=== PATIENT | female | born 1990 | race Caucasian/White ===

== ENCOUNTER 2018-05-17 12:14 | Inpatient (IN) | payer OTHER ==
[~2018-05-17] VITALS: Ht 167.6 cm; Wt 148.0 kg
[2018-05-17 12:58] LABS: BASOPHILS # (AUTO) 0.05 x10^3/uL (0-0.1); BASOPHILS % (AUTO) 0 % (0-1); EOSINOPHILS # (AUTO) 0.25 x10^3/uL (0-0.4); EOSINOPHILS % (AUTO) 2 % (1-7); LYMPHOCYTES # (AUTO) 1.49 x10^3/uL (1-3.4); LYMPHOCYTES % (AUTO) 11 % (22-44); MD NO; MEAN CORPUSCULAR HEMOGLOBIN 31.1 pg (27.0-34.8); MEAN CORPUSCULAR HGB CONC 33.7 g/dL (32.4-35.8); MEAN CORPUSCULAR VOLUME 92.5 fL (80-100); MEAN PLATELET VOLUME 9.3 fL (7.4-10.4); MONOCYTES # (AUTO) 0.81 x10^3/uL (0.2-0.8); MONOCYTES % (AUTO) 6 % (2-9); NEUTROPHILS # (AUTO) 11.21 x10^3/uL (1.8-6.8); NEUTROPHILS % (AUTO) 81 % (42-75); PLATELET COUNT 216 x10^3/uL (130-400); RED BLOOD COUNT 3.95 x10^6/uL (3.82-5.3); RED CELL DISTRIBUTION WIDTH 15.4 % (9.6-15.2)
[2018-05-17 13:05] VITALS: BP 135/85
[2018-05-17 13:09] LABS: MICROSCOPIC INDICATED
[2018-05-17 13:14] LABS: ALBUMIN 2.4 g/dL (3.4-5.0); ANION GAP 10 mmol/L (5-15); CHLORIDE 107 mmol/L (98-107)
[2018-05-17 13:19] LABS: ALANINE AMINOTRANSFERASE 21 U/L (12-78); ALKALINE PHOSPHATASE 92 U/L (45-117); BILIRUBIN,TOTAL 0.3 mg/dL (0.2-1.0); CREATININE 0.54 mg/dL (0.55-1.02); TOTAL PROTEIN 6.3 g/dL (6.4-8.2)
[2018-05-17 13:21] LABS: BILIRUBIN, DIRECT < 0.1 mg/dL (0.1-0.2)
[2018-05-17] MEDS ORDERED: MAGNESIUM SULFATE PMX 4GM/100M 100 ML IVPB ONE ×2 (14:00→14:30)
[2018-05-17] MEDS ORDERED: OXYTOCIN 30U/ 0.9% NaCL 500ML 500 ML IV ONE (14:09)
[2018-05-17] MEDS: MAGNESIUM SULF. PMX 20GM/500ML 500 ML IV SCH ×2 (14:09→15:17)
[2018-05-17] MEDS ORDERED: OXYTOCIN 30U/ 0.9% NaCL 500ML 500 ML ONE (14:19)
[2018-05-17] MEDS ORDERED: MAGNESIUM SULFATE PMX 4GM/100M 100 ML ONE (14:19)
[2018-05-17] MEDS ORDERED: NEWBORN KIT ONE ×2 (14:19→14:20)
[2018-05-17] MEDS ORDERED: MAGNESIUM SULF. PMX 20GM/500ML 500 ML IV ONE (14:19)
[2018-05-17] MEDS ORDERED: ONDANSETRON 2MG/ML, 2ML IVPush PRN (14:30)
[2018-05-17] MEDS ORDERED: FENTANYL PF 100 MCG/2ML IV PRN (14:30)
[2018-05-17] MEDS ORDERED: CALCIUM CARBONATE 500 MG TAB.CHEW PO PRN (14:30)
[2018-05-17] MEDS ORDERED: FENTANYL PF 100 MCG/2ML IVPush PRN (14:30)
[2018-05-17] MEDS: LACTATED RINGERS 1,000 ML IV SCH (14:55)
[2018-05-17 15:28] VITALS: BP 159/79
[2018-05-17] MEDS: OXYTOCIN 30U/ 0.9% NaCL 500ML 500 ML IV PRN (15:40)
[2018-05-17] MEDS ORDERED: LIDOCAINE/PF 1%, 30ML ONE ×2 (19:10→19:11)
[2018-05-17] MEDS ORDERED: MISOPROSTOL 200 MCG TABLET ONE (19:10)
[2018-05-17 19:36] VITALS: BP 146/73
[2018-05-18] MEDS ORDERED: MAGNESIUM SULF. PMX 20GM/500ML 500 ML IV ONE ×3 (00:47→19:40)
[2018-05-18] MEDS ORDERED: ACETAMINOPHEN 325 MG TABLET ONE (00:47)
[2018-05-18] MEDS: MAGNESIUM SULF. PMX 20GM/500ML 500 ML IV SCH ×3 (00:49→19:43)
[2018-05-18] MEDS ORDERED: ACETAMINOPHEN 325 MG TABLET PO PRN (01:00)
[2018-05-18] MEDS ORDERED: FENTANYL/BUPIV./NS/PF 250 ML EPIDCONT SCH (03:34)
[2018-05-18] MEDS: D5%-LACTATED RINGERS 1,000 ML IV SCH ×2 (03:34→14:30)
[2018-05-18] MEDS ORDERED: FENTANYL PF 500 MCG, BUPIVACAINE/PF 0.5%, 30ML 62.5 ML in SODIUM CHLORIDE 0.9% 177.5 ML EPIDCONT SCH (04:00)
[2018-05-18] MEDS ORDERED: BUPIVACAINE 0.25% ONE (04:58)
[2018-05-18] MEDS ORDERED: FENTANYL PF 100 MCG/2ML ONE (04:58)
[2018-05-18] MEDS: LACTATED RINGERS 1,000 ML IV SCH (07:34)
[2018-05-18] MEDS ORDERED: CALCIUM CARBONATE 500 MG TAB.CHEW ONE (12:36)
[2018-05-18] MEDS: CALCIUM CARBONATE 500 MG TAB.CHEW PO PRN (12:41)
[2018-05-18] MEDS ORDERED: OXYTOCIN 30U/ 0.9% NaCL 500ML 500 ML ONE (16:08)
[2018-05-18] MEDS: OXYTOCIN 30U/ 0.9% NaCL 500ML 500 ML IV PRN ×2 (18:44→19:45)
[2018-05-18] MEDS: OXYTOCIN 30U/ 0.9% NaCL 500ML 500 ML IV SCH (19:44)
[2018-05-18] MEDS ORDERED: MAGNESIUM SULF. PMX 20GM/500ML 500 ML IV SCH (19:44)
[2018-05-18] MEDS ORDERED: MISOPROSTOL 200 MCG TABLET PO PRN (20:00)
[2018-05-18] MEDS ORDERED: ONDANSETRON 2MG/ML, 2ML IV PRN (20:00)
[2018-05-18] MEDS ORDERED: OXYcodone/APAP 5/325MG TABLET PO PRN ×2 (20:00)
[2018-05-18 20:40] VITALS: BP 115/86
[2018-05-18] MEDS ORDERED: IBUPROFEN 600 MG TABLET ONE (21:10)
[2018-05-18] MEDS: IBUPROFEN 600 MG TABLET PO PRN (21:13)
[2018-05-18 22:39] VITALS: BP 131/73
[2018-05-18 23:00] VITALS: BP 132/62
[2018-05-19 01:15] VITALS: BP 132/74
[2018-05-19] MEDS ORDERED: LACTATED RINGERS 1,000 ML IV SCH (01:15)
[2018-05-19] MEDS: LACTATED RINGERS 1,000 ML IV SCH ×2 (01:26→21:26)
[2018-05-19] MEDS ORDERED: IBUPROFEN 600 MG TABLET ONE ×3 (03:27→16:06)
[2018-05-19] MEDS: IBUPROFEN 600 MG TABLET PO PRN ×3 (03:32→16:13)
[2018-05-19 05:13] LABS: BASOPHILS # (AUTO) 0.04 x10^3/uL (0-0.1); BASOPHILS % (AUTO) 0 % (0-1); EOSINOPHILS # (AUTO) 0.13 x10^3/uL (0-0.4); EOSINOPHILS % (AUTO) 1 % (1-7); LYMPHOCYTES # (AUTO) 1.59 x10^3/uL (1-3.4); LYMPHOCYTES % (AUTO) 12 % (22-44); MD NO; MEAN CORPUSCULAR HEMOGLOBIN 31.3 pg (27.0-34.8); MEAN CORPUSCULAR HGB CONC 33.9 g/dL (32.4-35.8); MEAN CORPUSCULAR VOLUME 92.4 fL (80-100); MEAN PLATELET VOLUME 9.1 fL (7.4-10.4); MONOCYTES # (AUTO) 1.08 x10^3/uL (0.2-0.8); MONOCYTES % (AUTO) 8 % (2-9); NEUTROPHILS # (AUTO) 10.67 x10^3/uL (1.8-6.8); NEUTROPHILS % (AUTO) 79 % (42-75); PLATELET COUNT 201 x10^3/uL (130-400); RED BLOOD COUNT 3.41 x10^6/uL (3.82-5.3); RED CELL DISTRIBUTION WIDTH 15.2 % (9.6-15.2)
[2018-05-19] MEDS: OXYTOCIN 30U/ 0.9% NaCL 500ML 500 ML IV SCH ×2 (05:44→15:44)
[2018-05-19] MEDS ORDERED: MAGNESIUM SULF. PMX 20GM/500ML 500 ML IV ONE ×2 (06:27→06:51)
[2018-05-19] MEDS: MAGNESIUM SULF. PMX 20GM/500ML 500 ML IV SCH ×2 (06:30→10:28)
[2018-05-19 08:00] VITALS: BP 131/61
[2018-05-19] MEDS ORDERED: RHOGAM FROM BLOOD BANK 1 NOTE EA IM/IV ONE (09:30)
[2018-05-19] MEDS ORDERED: PRENATAL VIT/IRON/FA 1 EACH TABLET ONE (11:57)
[2018-05-19] MEDS ORDERED: DOCUSATE 100 MG CAPSULE ONE (11:57)
[2018-05-19] MEDS: PRENATAL VIT/IRON/FA 1 EACH TABLET PO SCH (11:59)
[2018-05-19] MEDS: DOCUSATE 100 MG CAPSULE PO PRN (12:00)
[2018-05-19] MEDS ORDERED: LABETALOL 300 MG TABLET ONE (14:27)
[2018-05-19] MEDS ORDERED: CALCIUM CARBONATE 500 MG TAB.CHEW ONE (14:36)
[2018-05-19] MEDS: CALCIUM CARBONATE 500 MG TAB.CHEW PO PRN (14:44)
[2018-05-19 19:30] VITALS: BP 138/84
[2018-05-20] VITALS: BP 138/90
[2018-05-20] MEDS: IBUPROFEN 600 MG TABLET PO PRN ×2 (00:23→06:54)
[2018-05-20] MEDS: DOCUSATE 100 MG CAPSULE PO PRN ×2 (00:23→09:44)
[2018-05-20] MEDS: OXYTOCIN 30U/ 0.9% NaCL 500ML 500 ML IV SCH ×2 (01:44→11:44)
[2018-05-20] MEDS ORDERED: MEASLES,MUMPS&RUBELLA VACC/PF 0.5 ML SQ-VACC ONE (03:30)
[2018-05-20 04:00] VITALS: BP 113/75
[2018-05-20 08:30] VITALS: BP 136/84
[2018-05-20] MEDS: PRENATAL VIT/IRON/FA 1 EACH TABLET PO SCH (09:44)
[2018-05-20] MEDS ORDERED: IBUP-1222 PO (11:05)
== END 2018-05-20 13:11 | disposition home or self-care (01) | DRG 775 ==
LOC: LDOP 12:14 → LDIP 13:51 → 2NE 05-18 21:17 → 2NW 05-19 18:16
PROVIDERS: ADMIT Obstetrics & Gynecology; ATTEND Obstetrics & Gynecology
PROC: 10E0XZZ Delivery of Products of Conception, External Approach (ICD-10-PCS; 2018-05-18)
PROC: 0KQM0ZZ Repair Perineum Muscle, Open Approach (ICD-10-PCS; 2018-05-18)
PROC: 10907ZC Drainage of Amniotic Fluid, Therapeutic from Products of Conception, Via Natural or Artificial Opening (ICD-10-PCS; 2018-05-18)
PROC: 3E0R3BZ Introduction of Anesthetic Agent into Spinal Canal, Percutaneous Approach (ICD-10-PCS; 2018-05-18)
PROC: 00HU33Z Insertion of Infusion Device into Spinal Canal, Percutaneous Approach (ICD-10-PCS; 2018-05-18)
PROC: 3E0134Z Introduction of Serum, Toxoid and Vaccine into Subcutaneous Tissue, Percutaneous Approach (ICD-10-PCS; principal; 2018-05-20)
DX: O14.14 Severe pre-eclampsia complicating childbirth (principal); Z68.43 Body mass index [BMI] 50.0-59.9, adult; Z37.0 Single live birth; O99.214 Obesity complicating childbirth; O63.1 Prolonged second stage (of labor); E66.01 Morbid (severe) obesity due to excess calories; O70.1 Second degree perineal laceration during delivery; Z3A.37 37 weeks gestation of pregnancy; Z14.1 Cystic fibrosis carrier; Z87.410 Personal history of cervical dysplasia; Z90.89 Acquired absence of other organs; Z88.2 Allergy status to sulfonamides; Z88.6 Allergy status to analgesic agent; Z91.018 Allergy to other foods; Z91.013 Allergy to seafood; Z23 Encounter for immunization
CPT/HCPCS: 36415; J2790; J7121; 71045; 80053; 81001; 82248; 82570; 83735; 84156; 84550; 85025; 85461; 86850; 86900; J2590; J3010; J3475; J7120

== ENCOUNTER 2018-05-24 10:20 | Observation (INO) | payer OTHER ==
[~2018-05-24] VITALS: Ht 167.6 cm; Wt 138.6 kg
[~2018-05-24 10:20] MED LIST: IBUP-1222 PO
[2018-05-24] MEDS ORDERED: NAPR220C2 PO (11:18)
[2018-05-24] MEDS ORDERED: CETI10CA PO (11:18)
[2018-05-24] MEDS ORDERED: PREN-59 PO (11:18)
[2018-05-24] MEDS ORDERED: RANI150T23 PO (11:18)
[2018-05-24] MEDS ORDERED: SODIUM CHLORIDE FLUSH 10ML SYR IVF ONE (11:30)
[2018-05-24 11:59] LABS: CULTURE INDICATED? YES; MICROSCOPIC INDICATED
[2018-05-24 12:16] LABS: MEAN CORPUSCULAR HEMOGLOBIN 31.1 pg (27.0-34.8); MEAN CORPUSCULAR HGB CONC 33.6 g/dL (32.4-35.8); MEAN CORPUSCULAR VOLUME 92.4 fL (80-100); MEAN PLATELET VOLUME 7.6 fL (7.4-10.4); PLATELET COUNT 301 x10^3/uL (130-400); RED BLOOD COUNT 3.71 x10^6/uL (3.82-5.3); RED CELL DISTRIBUTION WIDTH 15.4 % (9.6-15.2)
[2018-05-24 12:24] LABS: ALANINE AMINOTRANSFERASE 38 U/L (12-78); ALBUMIN 2.8 g/dL (3.4-5.0); ANION GAP 9 mmol/L (5-15); CALCIUM 8.4 mg/dL (8.5-10.1); CHLORIDE 110 mmol/L (98-107); CREATININE 0.74 mg/dL (0.55-1.02)
[2018-05-24 12:26] LABS: ALKALINE PHOSPHATASE 81 U/L (45-117); BILIRUBIN,TOTAL 0.4 mg/dL (0.2-1.0); TOTAL PROTEIN 6.8 g/dL (6.4-8.2)
[2018-05-24 12:31] LABS: BASOPHILS # (AUTO) 0.02 x10^3/uL (0-0.1); BASOPHILS % (AUTO) 0 % (0-1); EOSINOPHILS # (AUTO) 0.25 x10^3/uL (0-0.4); EOSINOPHILS % (AUTO) 2 % (1-7); LYMPHOCYTES # (AUTO) 1.18 x10^3/uL (1-3.4); LYMPHOCYTES % (AUTO) 10 % (22-44); MD SCAN; MONOCYTES # (AUTO) 0.84 x10^3/uL (0.2-0.8); MONOCYTES % (AUTO) 7 % (2-9); NEUTROPHILS # (AUTO) 10.14 x10^3/uL (1.8-6.8); NEUTROPHILS % (AUTO) 82 % (42-75)
[2018-05-24] MEDS ORDERED: MORPHINE SULFATE 4 MG/ML, 1ML ONE (12:58)
[2018-05-24] MEDS ORDERED: ONDANSETRON ODT 4 MG ONE (12:58)
[2018-05-24] MEDS ORDERED: LABETALOL 5MG/ML, 20ML ONE (12:58)
[2018-05-24] MEDS ORDERED: MORPHINE SULFATE 4 MG/ML, 1ML IVPush PRN (13:00)
[2018-05-24] MEDS ORDERED: LABETALOL 5MG/ML, 20ML IVPush ONE (13:00)
[2018-05-24] MEDS ORDERED: ONDANSETRON ODT 4 MG PO ONE (13:00)
[2018-05-24] MEDS ORDERED: CEFTRIAXONE PMX 1GM/50ML 50 ML ONE (13:26)
[2018-05-24] MEDS ORDERED: SODIUM CHLORIDE 0.9% 1,000 ML IV ONE (13:27)
[2018-05-24 13:30] LABS: MICROSCOPIC INDICATED
[2018-05-24] MEDS ORDERED: SODIUM CHLORIDE FLUSH 10ML SYR IVF PRN (13:30)
[2018-05-24] MEDS ORDERED: CEFTRIAXONE 1,000 MG in SODIUM CHLORIDE 0.9% 50 ML IVPB ONE (13:30)
[2018-05-24 13:54] LABS: CULTURE INDICATED? YES
[2018-05-24 14:20] VITALS: BP 140/82
[2018-05-24] MEDS ORDERED: BISACODYL 10 MG SUPP PR PRN (14:30)
[2018-05-24] MEDS ORDERED: ACETAMINOPHEN 325 MG TABLET PO PRN (14:30)
[2018-05-24] MEDS ORDERED: ONDANSETRON ODT 4 MG PO PRN (14:30)
[2018-05-24 14:39] VITALS: BP 140/82
[2018-05-24] MEDS: IBUPROFEN 600 MG TABLET PO SCH ×2 (15:05→21:27)
[2018-05-24] MEDS: NS + 20MEQ KCL 1,000 ML IV SCH ×2 (15:25→23:16)
[2018-05-24] MEDS: LABETALOL 100 MG TABLET PO SCH (17:03)
[2018-05-24 17:04] VITALS: BP 138/83
[2018-05-24 20:30] VITALS: BP 121/84
[2018-05-24] MEDS ORDERED: LABETALOL 5MG/ML, 20ML IVPush PRN (21:00)
[2018-05-25 01:43] VITALS: BP 107/66
[2018-05-25] MEDS: IBUPROFEN 600 MG TABLET PO SCH ×2 (02:47→08:51)
[2018-05-25 05:33] LABS: BASOPHILS # (AUTO) 0.02 x10^3/uL (0-0.1); BASOPHILS % (AUTO) 0 % (0-1); EOSINOPHILS # (AUTO) 0.28 x10^3/uL (0-0.4); EOSINOPHILS % (AUTO) 4 % (1-7); LYMPHOCYTES # (AUTO) 1.41 x10^3/uL (1-3.4); LYMPHOCYTES % (AUTO) 18 % (22-44); MD NO; MEAN CORPUSCULAR HEMOGLOBIN 31.4 pg (27.0-34.8); MEAN CORPUSCULAR HGB CONC 33.6 g/dL (32.4-35.8); MEAN CORPUSCULAR VOLUME 93.6 fL (80-100); MEAN PLATELET VOLUME 7.8 fL (7.4-10.4); MONOCYTES # (AUTO) 0.65 x10^3/uL (0.2-0.8); MONOCYTES % (AUTO) 8 % (2-9); NEUTROPHILS # (AUTO) 5.57 x10^3/uL (1.8-6.8); NEUTROPHILS % (AUTO) 70 % (42-75); PLATELET COUNT 276 x10^3/uL (130-400); RED BLOOD COUNT 3.21 x10^6/uL (3.82-5.3); RED CELL DISTRIBUTION WIDTH 15.4 % (9.6-15.2)
[2018-05-25 05:42] LABS: ANION GAP 8 mmol/L (5-15); CHLORIDE 111 mmol/L (98-107); CREATININE 0.67 mg/dL (0.55-1.02)
[2018-05-25] MEDS: LABETALOL 100 MG TABLET PO SCH (08:00)
[2018-05-25] MEDS: NS + 20MEQ KCL 1,000 ML IV SCH (08:51)
[2018-05-25 08:54] VITALS: BP 119/78
[2018-05-25] MEDS ORDERED: FAMOTIDINE 20 MG TABLET PO SCH (09:00)
[2018-05-25] MEDS ORDERED: CETIRIZINE 10 MG TABLET PO PRN (09:00)
[2018-05-25] MEDS ORDERED: LABE100T6 PO (12:04)
[2018-05-25 12:19] VITALS: BP 136/86
[2018-05-25] MEDS ORDERED: CEFTRIAXONE 1,000 MG in SODIUM CHLORIDE 0.9% 50 ML IV SCH (13:30)
== END 2018-05-25 12:51 | disposition home or self-care (01) ==
LOC: ED 12:42 → INTOOBSV 13:27 → EDIP 13:27 → 2NE 14:27 → 2NW 05-25 06:28
PROVIDERS: ADMIT Internal Medicine; ATTEND Internal Medicine
DX: O90.89 Other complications of the puerperium, not elsewhere classified (principal); N13.2 Hydronephrosis with renal and ureteral calculous obstruction; N13.6 Pyonephrosis; R11.2 Nausea with vomiting, unspecified; O90.81 Anemia of the puerperium; O99.215 Obesity complicating the puerperium; Z87.410 Personal history of cervical dysplasia; Z37.0 Single live birth
CPT/HCPCS: 36415; 74176; 80048; 80053; 81001; 83605; 84145; 85025; 87040; 87086; 96361; 96365; 96375; 99291; G0378; J0696; J3480; J7030; Q0162

== ENCOUNTER 2020-05-16 14:25 | Inpatient (IN) | payer OTHER ==
[~2020-05-16] VITALS: Ht 167.6 cm; Wt 140.0 kg
[~2020-05-16 14:25] MED LIST changes: +CETI10CA PO; +LABE100T6 PO; +NAPR220C2 PO; +PREN-59 PO; +RANI-467 PO
[2020-05-16 15:05] VITALS: BP 152/100
[2020-05-16 15:22] LABS: MICROSCOPIC INDICATED
[2020-05-16 15:50] LABS: BASOPHILS # (AUTO) 0.02 x10^3/uL (0-0.1); BASOPHILS % (AUTO) 0 % (0-1); EOSINOPHILS # (AUTO) 0.19 x10^3/uL (0-0.4); EOSINOPHILS % (AUTO) 2 % (1-7); LYMPHOCYTES # (AUTO) 1.99 x10^3/uL (1-3.4); LYMPHOCYTES % (AUTO) 18 % (22-44); MD NO; MEAN CORPUSCULAR HEMOGLOBIN 31.5 pg (27.0-34.8); MEAN CORPUSCULAR HGB CONC 32.9 g/dL (32.4-35.8); MEAN CORPUSCULAR VOLUME 95.7 fL (80-100); MEAN PLATELET VOLUME 8.8 fL (7.4-10.4); MONOCYTES # (AUTO) 0.86 x10^3/uL (0.2-0.8); MONOCYTES % (AUTO) 8 % (2-9); NEUTROPHILS # (AUTO) 8.29 x10^3/uL (1.8-6.8); NEUTROPHILS % (AUTO) 73 % (42-75); PLATELET COUNT 212 x10^3/uL (130-400); RED BLOOD COUNT 3.99 x10^6/uL (3.82-5.3); RED CELL DISTRIBUTION WIDTH 15.3 % (9.6-15.2)
[2020-05-16 16:02] LABS: ALBUMIN 2.4 g/dL (3.4-5.0); ANION GAP 8 mmol/L (5-15); CALCIUM 8.8 mg/dL (8.5-10.1); CHLORIDE 110 mmol/L (98-107)
[2020-05-16 16:06] LABS: ALANINE AMINOTRANSFERASE 21 U/L (12-78); ALKALINE PHOSPHATASE 88 U/L (45-117); BILIRUBIN,TOTAL 0.3 mg/dL (0.2-1.0); CREATININE 0.52 mg/dL (0.55-1.02); TOTAL PROTEIN 6.4 g/dL (6.4-8.2)
[2020-05-16] MEDS ORDERED: NEWBORN KIT ONE (16:50)
[2020-05-16] MEDS ORDERED: OXYTOCIN 30U/ 0.9% NaCL 500ML 500 ML ONE ×2 (16:53→20:53)
[2020-05-16] MEDS ORDERED: METOCLOPRAMIDE 5 MG/ML, 2ML ONE (16:53)
[2020-05-16] MEDS ORDERED: LACTATED RINGERS 1,000 ML IVBOLUS ONE (17:00)
[2020-05-16] MEDS ORDERED: morphine SULFATE/PF 0.5 MG/ML, 10ML ONE (17:15)
[2020-05-16] MEDS ORDERED: EPINEPHRINE 1 MG/ML, 1ML ONE (17:25)
[2020-05-16] MEDS ORDERED: METOCLOPRAMIDE 5 MG/ML, 2ML IVPush ONE (18:30)
[2020-05-16] MEDS ORDERED: SODIUM CITRATE/CITRIC ACID 30 ML UDC PO ONE (18:30)
[2020-05-16] MEDS ORDERED: EPHEDRINE 50 MG/ML, 1ML ONE (19:02)
[2020-05-16] MEDS ORDERED: CEFAZOLIN 1,000 MG ONE ×2 (19:02)
[2020-05-16] MEDS ORDERED: WATER-INJECTION,STERILE 10 ML IV ONE (19:02)
[2020-05-16] MEDS ORDERED: PHENYLEPHRINE 10 MG/ML ONE (19:02)
[2020-05-16] MEDS ORDERED: ONDANSETRON 2MG/ML, 2ML ONE (19:02)
[2020-05-16] MEDS ORDERED: OXYTOCIN 10 UNITS/ML, 1ML ONE (19:02)
[2020-05-16] MEDS ORDERED: TRANEXAMIC ACID 100 MG/ML, 10ML ONE (19:58)
[2020-05-16] MEDS ORDERED: MISOPROSTOL 200 MCG TABLET ONE (20:00)
[2020-05-16] MEDS ORDERED: CALCIUM CHLORIDE 10%, 10ML SYR ONE (20:06)
[2020-05-16] MEDS: LACTATED RINGERS 1,000 ML IV SCH ×2 (20:33)
[2020-05-16] MEDS: OXYTOCIN 30U/ 0.9% NaCL 500ML 500 ML IV SCH (20:33)
[2020-05-16] MEDS ORDERED: MEPERIDINE/PF 50 MG/ML ONE (20:41)
[2020-05-16] MEDS ORDERED: IBUPROFEN 800 MG TABLET PO SCH (21:00)
[2020-05-16] MEDS ORDERED: MISOPROSTOL 200 MCG TABLET SL SCH (21:00)
[2020-05-16] MEDS ORDERED: ACETAMINOPHEN 325 MG TABLET PO SCH (21:00)
[2020-05-16] MEDS ORDERED: CEFAZOLIN 1,000 MG IM SCH (21:00)
[2020-05-16] MEDS ORDERED: CALCIUM CARBONATE 500 MG TAB.CHEW PO PRN (21:00)
[2020-05-16] MEDS: KETOROLAC 30 MG/1 ML IM SCH (21:00)
[2020-05-16] MEDS ORDERED: BISACODYL 10 MG SUPP PR PRN (21:00)
[2020-05-16] MEDS ORDERED: ONDANSETRON 2MG/ML, 2ML IV PRN (21:00)
[2020-05-16 21:08] LABS: BASOPHILS # (AUTO) 0.03 x10^3/uL (0-0.1); BASOPHILS % (AUTO) 0 % (0-1); EOSINOPHILS # (AUTO) 0.14 x10^3/uL (0-0.4); EOSINOPHILS % (AUTO) 1 % (1-7); LYMPHOCYTES # (AUTO) 1.93 x10^3/uL (1-3.4); LYMPHOCYTES % (AUTO) 15 % (22-44); MD NO; MEAN CORPUSCULAR HEMOGLOBIN 31.9 pg (27.0-34.8); MEAN CORPUSCULAR HGB CONC 33.4 g/dL (32.4-35.8); MEAN CORPUSCULAR VOLUME 95.6 fL (80-100); MEAN PLATELET VOLUME 8.6 fL (7.4-10.4); MONOCYTES # (AUTO) 0.69 x10^3/uL (0.2-0.8); MONOCYTES % (AUTO) 5 % (2-9); NEUTROPHILS # (AUTO) 10.35 x10^3/uL (1.8-6.8); NEUTROPHILS % (AUTO) 79 % (42-75); PLATELET COUNT 219 x10^3/uL (130-400); RED BLOOD COUNT 3.62 x10^6/uL (3.82-5.3); RED CELL DISTRIBUTION WIDTH 15.4 % (9.6-15.2)
[2020-05-16] MEDS: CEFAZOLIN PMX 1GM/50ML 50 ML IV SCH (21:30)
[2020-05-16 21:35] LABS: INTERNATIONAL NORMALIZED RATIO 1.05 (0.93-1.1); PROTHROMBIN TIME 10.8 Seconds (9.6-11.5)
[2020-05-16] MEDS ORDERED: HYDROmorphone 2 MG/ML, 1ML ONE (21:40)
[2020-05-16] MEDS ORDERED: LABETALOL 200 MG TABLET ONE (21:45)
[2020-05-16] MEDS: LABETALOL 200 MG TABLET PO SCH (21:50)
[2020-05-16] MEDS ORDERED: MEPERIDINE/PF 25MG/0.5ML IVPush PRN (22:00)
[2020-05-16] MEDS ORDERED: ONDANSETRON 2MG/ML, 2ML IVPush PRN (22:00)
[2020-05-16] MEDS ORDERED: KETOROLAC 30 MG/1 ML IVPush PRN (22:00)
[2020-05-16] MEDS ORDERED: OXYcodone 5 MG/5 ML ORAL.SOL UDC PO PRN (22:00)
[2020-05-16] MEDS ORDERED: HYDROmorphone 1 MG/ML, 1ML INJ IVPush PRN (22:00)
[2020-05-16] MEDS ORDERED: OXYcodone 5 MG/5 ML ORAL.SOL UDC ONE (22:15)
[2020-05-17] MEDS ORDERED: OXYcodone/APAP 5/325MG TABLET ONE (02:06)
[2020-05-17] MEDS: KETOROLAC 30 MG/1 ML IM SCH (02:20)
[2020-05-17] MEDS ORDERED: OXYcodone/APAP 5/325MG TABLET PO PRN (02:30)
[2020-05-17] MEDS ORDERED: MISOPROSTOL 200 MCG TABLET SL PRN (02:30)
[2020-05-17] MEDS ORDERED: ACETAMINOPHEN 325 MG TABLET PO PRN (02:30)
[2020-05-17 03:20] LABS: BASOPHILS # (AUTO) 0.03 x10^3/uL (0-0.1); BASOPHILS % (AUTO) 0 % (0-1); EOSINOPHILS # (AUTO) 0.12 x10^3/uL (0-0.4); EOSINOPHILS % (AUTO) 1 % (1-7); LYMPHOCYTES # (AUTO) 2.31 x10^3/uL (1-3.4); LYMPHOCYTES % (AUTO) 17 % (22-44); MD NO; MEAN CORPUSCULAR HEMOGLOBIN 32.1 pg (27.0-34.8); MEAN CORPUSCULAR HGB CONC 33.6 g/dL (32.4-35.8); MEAN CORPUSCULAR VOLUME 95.6 fL (80-100); MEAN PLATELET VOLUME 8.2 fL (7.4-10.4); MONOCYTES # (AUTO) 0.88 x10^3/uL (0.2-0.8); MONOCYTES % (AUTO) 7 % (2-9); NEUTROPHILS # (AUTO) 10.33 x10^3/uL (1.8-6.8); NEUTROPHILS % (AUTO) 76 % (42-75); PLATELET COUNT 203 x10^3/uL (130-400); RED BLOOD COUNT 3.02 x10^6/uL (3.82-5.3); RED CELL DISTRIBUTION WIDTH 15.4 % (9.6-15.2)
[2020-05-17] MEDS: LACTATED RINGERS 1,000 ML IV SCH ×5 (04:33→20:33)
[2020-05-17] MEDS: CEFAZOLIN PMX 1GM/50ML 50 ML IV SCH ×2 (05:33→13:24)
[2020-05-17] MEDS: OXYTOCIN 30U/ 0.9% NaCL 500ML 500 ML IV SCH ×2 (06:33→16:33)
[2020-05-17] MEDS ORDERED: OXYTOCIN 30U/ 0.9% NaCL 500ML 500 ML ONE ×2 (07:03→15:45)
[2020-05-17] MEDS ORDERED: MISOPROSTOL 200 MCG TABLET ONE (08:09)
[2020-05-17] MEDS ORDERED: OXYcodone IR 5MG TABLET ONE ×4 (08:09→22:10)
[2020-05-17] MEDS ORDERED: DOCUSATE 100 MG CAPSULE ONE (08:09)
[2020-05-17] MEDS ORDERED: LABETALOL 200 MG TABLET ONE ×2 (08:09→15:45)
[2020-05-17] MEDS: DOCUSATE 100 MG CAPSULE PO PRN (08:12)
[2020-05-17] MEDS: OXYcodone IR 5MG TABLET PO PRN ×4 (08:12→22:13)
[2020-05-17] MEDS: LABETALOL 200 MG TABLET PO SCH ×2 (08:12→17:17)
[2020-05-17] MEDS: PRENATAL VIT/IRON/FA 1 EACH TABLET PO SCH (09:00)
[2020-05-17] MEDS ORDERED: DIPHENHYDRAMINE 50 MG/ML, 1ML ONE (09:04)
[2020-05-17] MEDS ORDERED: ACETAMINOPHEN 500 MG TABLET ONE ×2 (13:20→19:38)
[2020-05-17] MEDS ORDERED: MORPHINE SULFATE 4 MG/ML, 1ML ONE (13:27)
[2020-05-17] MEDS ORDERED: ACETAMINOPHEN 325 MG TABLET PO SCH (13:30)
[2020-05-17] MEDS ORDERED: MORPHINE SULFATE 4 MG/ML, 1ML IVPush PRN (13:30)
[2020-05-17 16:23] LABS: BASOPHILS # (AUTO) 0.02 x10^3/uL (0-0.1); BASOPHILS % (AUTO) 0 % (0-1); EOSINOPHILS # (AUTO) 0.18 x10^3/uL (0-0.4); EOSINOPHILS % (AUTO) 2 % (1-7); LYMPHOCYTES # (AUTO) 1.77 x10^3/uL (1-3.4); LYMPHOCYTES % (AUTO) 16 % (22-44); MEAN CORPUSCULAR HEMOGLOBIN 31.6 pg (27.0-34.8); MEAN CORPUSCULAR HGB CONC 32.8 g/dL (32.4-35.8); MEAN CORPUSCULAR VOLUME 96.4 fL (80-100); MONOCYTES # (AUTO) 0.89 x10^3/uL (0.2-0.8); MONOCYTES % (AUTO) 8 % (2-9); NEUTROPHILS # (AUTO) 8.52 x10^3/uL (1.8-6.8); NEUTROPHILS % (AUTO) 75 % (42-75); PLATELET COUNT 175 x10^3/uL (130-400); RED BLOOD COUNT 2.56 x10^6/uL (3.82-5.3); RED CELL DISTRIBUTION WIDTH 15.6 % (9.6-15.2)
[2020-05-17 16:24] LABS: MD NO
[2020-05-17] MEDS: ACETAMINOPHEN 500 MG TABLET PO SCH ×2 (19:30→19:46)
[2020-05-17 21:23] LABS: BASOPHILS # (AUTO) 0.02 x10^3/uL (0-0.1); BASOPHILS % (AUTO) 0 % (0-1); EOSINOPHILS # (AUTO) 0.16 x10^3/uL (0-0.4); EOSINOPHILS % (AUTO) 2 % (1-7); LYMPHOCYTES # (AUTO) 1.63 x10^3/uL (1-3.4); LYMPHOCYTES % (AUTO) 15 % (22-44); MD NO; MEAN CORPUSCULAR HEMOGLOBIN 31.5 pg (27.0-34.8); MEAN CORPUSCULAR HGB CONC 32.8 g/dL (32.4-35.8); MEAN CORPUSCULAR VOLUME 96.3 fL (80-100); MEAN PLATELET VOLUME 8.1 fL (7.4-10.4); MONOCYTES % (AUTO) 8 % (2-9); NEUTROPHILS # (AUTO) 8.08 x10^3/uL (1.8-6.8); NEUTROPHILS % (AUTO) 76 % (42-75); PLATELET COUNT 173 x10^3/uL (130-400); RED BLOOD COUNT 2.58 x10^6/uL (3.82-5.3); RED CELL DISTRIBUTION WIDTH 15.8 % (9.6-15.2)
[2020-05-17] MEDS ORDERED: KETOROLAC 30 MG/1 ML ONE (22:10)
[2020-05-17] MEDS ORDERED: SIMETHICONE 80 MG CHEW TAB ONE (22:10)
[2020-05-17] MEDS: SIMETHICONE 80 MG CHEW TAB PO PRN (22:12)
[2020-05-17] MEDS: KETOROLAC 30 MG/1 ML IV SCH (22:29)
[2020-05-18] MEDS: LACTATED RINGERS 1,000 ML IV SCH ×6 (01:35→22:33)
[2020-05-18] MEDS ORDERED: ACETAMINOPHEN 500 MG TABLET ONE (01:39)
[2020-05-18] MEDS: ACETAMINOPHEN 500 MG TABLET PO SCH ×4 (01:41→19:50)
[2020-05-18] MEDS ORDERED: KETOROLAC 30 MG/1 ML ONE (04:51)
[2020-05-18] MEDS: KETOROLAC 30 MG/1 ML IV SCH ×3 (04:56→17:09)
[2020-05-18 05:28] LABS: BASOPHILS # (AUTO) 0.02 x10^3/uL (0-0.1); BASOPHILS % (AUTO) 0 % (0-1); EOSINOPHILS # (AUTO) 0.19 x10^3/uL (0-0.4); EOSINOPHILS % (AUTO) 2 % (1-7); LYMPHOCYTES # (AUTO) 1.44 x10^3/uL (1-3.4); LYMPHOCYTES % (AUTO) 14 % (22-44); MD NO; MEAN CORPUSCULAR HEMOGLOBIN 31.8 pg (27.0-34.8); MEAN CORPUSCULAR HGB CONC 33.1 g/dL (32.4-35.8); MEAN CORPUSCULAR VOLUME 95.9 fL (80-100); MEAN PLATELET VOLUME 7.8 fL (7.4-10.4); MONOCYTES # (AUTO) 0.69 x10^3/uL (0.2-0.8); MONOCYTES % (AUTO) 7 % (2-9); NEUTROPHILS # (AUTO) 7.85 x10^3/uL (1.8-6.8); NEUTROPHILS % (AUTO) 77 % (42-75); PLATELET COUNT 170 x10^3/uL (130-400); RED BLOOD COUNT 2.48 x10^6/uL (3.82-5.3); RED CELL DISTRIBUTION WIDTH 15.6 % (9.6-15.2)
[2020-05-18] MEDS: DOCUSATE 100 MG CAPSULE PO PRN ×2 (07:33→19:50)
[2020-05-18] MEDS: PRENATAL VIT/IRON/FA 1 EACH TABLET PO SCH (07:33)
[2020-05-18 07:35] VITALS: BP 105/71
[2020-05-18] MEDS ORDERED: LABETALOL 100 MG TABLET ONE (08:50)
[2020-05-18] MEDS: LABETALOL 100 MG TABLET PO SCH ×2 (08:54→17:09)
[2020-05-18] MEDS: SIMETHICONE 80 MG CHEW TAB PO PRN ×2 (10:18→19:50)
[2020-05-18] MEDS: FERROUS GLUCONATE 324 MG TABLET PO SCH ×2 (10:18→17:09)
[2020-05-18 12:41] VITALS: BP 113/51
[2020-05-18 17:15] VITALS: BP 110/57
[2020-05-18] MEDS ORDERED: LABETALOL 100 MG TABLET PO SCH (18:00)
[2020-05-18 19:50] VITALS: BP 108/70
[2020-05-18] MEDS: IBUPROFEN 800 MG TABLET PO PRN (22:34)
[2020-05-18] MEDS: OXYcodone IR 5MG TABLET PO PRN (22:37)
[2020-05-19 00:36] VITALS: BP 110/68
[2020-05-19] MEDS: SIMETHICONE 80 MG CHEW TAB PO PRN ×2 (02:03→07:56)
[2020-05-19] MEDS: ACETAMINOPHEN 500 MG TABLET PO SCH ×2 (02:03→07:55)
[2020-05-19] MEDS: OXYcodone IR 5MG TABLET PO PRN ×2 (02:12→09:28)
[2020-05-19 04:30] VITALS: BP 107/71
[2020-05-19] MEDS: LACTATED RINGERS 1,000 ML IV SCH ×3 (04:33→10:50)
[2020-05-19] MEDS: IBUPROFEN 800 MG TABLET PO PRN ×2 (06:30→12:39)
[2020-05-19] MEDS: PRENATAL VIT/IRON/FA 1 EACH TABLET PO SCH (07:55)
[2020-05-19] MEDS: DOCUSATE 100 MG CAPSULE PO PRN (07:55)
[2020-05-19] MEDS: LABETALOL 100 MG TABLET PO SCH (07:56)
[2020-05-19] MEDS: FERROUS GLUCONATE 324 MG TABLET PO SCH (07:58)
[2020-05-19 09:12] VITALS: BP 134/83
[2020-05-19] MEDS ORDERED: FE F1CAP8 PO (12:00)
== END 2020-05-19 13:09 | disposition home or self-care (01) | DRG 787 ==
LOC: LDOP 14:25 → LDIP 16:57 → 2NE 20:36 → 2NW 05-18 06:05
PROVIDERS: ADMIT Obstetrics & Gynecology; ATTEND Obstetrics & Gynecology
PROC: 10D00Z1 Extraction of Products of Conception, Low, Open Approach (ICD-10-PCS; principal; 2020-05-16)
PROC: 0W3R7ZZ Control Bleeding in Genitourinary Tract, Via Natural or Artificial Opening (ICD-10-PCS; 2020-05-16)
DX: O69.81X0 Labor and delivery complicated by cord around neck, without compression, not applicable or unspecified (principal); D62 Acute posthemorrhagic anemia; O72.1 Other immediate postpartum hemorrhage; O32.1XX0 Maternal care for breech presentation, not applicable or unspecified; O14.94 Unspecified pre-eclampsia, complicating childbirth; E66.01 Morbid (severe) obesity due to excess calories; O99.214 Obesity complicating childbirth; O99.02 Anemia complicating childbirth; Z37.0 Single live birth; Z3A.37 37 weeks gestation of pregnancy; Z87.410 Personal history of cervical dysplasia; Z88.2 Allergy status to sulfonamides
CPT/HCPCS: 36415; 80053; 81001; 82570; 84156; 84550; 85025; 85384; 85610; 85730; 86592; 86850; 86900; 87635; G0378; J0171; J0690; J1170; J1885; J2274; J2405; J2270; J2370; J2590; J2765